=== PATIENT | male | born 1950 | race Caucasian/White ===

== ENCOUNTER 2017-09-30 09:36 | Emergency (ER) | payer MEDICARE ==
--- NOTE | 2017-09-30 10:09 | UC ---
Respiratory Complaint HPI - HPI Summary HPI Summary: 67 yo WM former smoker p/w cough with pleuritic CP x 1 week associated with chills, denies n/v/d - History of Current Complaint Stated Complaint: COUGH Time Seen by Provider: 09/30/17 09:48 Hx Obtained From: Patient, Family/Research Analyst Onset/Duration: Lasting Days Severity Initially: Moderate Severity Currently: Moderate Character: Cough: Productive Aggravating Factors: Nothing Associated Signs And Symptoms: Positive: Chills - Allergies/Home Medications Allergies/Adverse Reactions: Allergies Allergy/AdvReac Type Severity Reaction Status Date / Time ibuprofen Allergy Diarrhea Verified 08/30/17 10:18 liraglutide Allergy Vomiting Verified 08/30/17 10:18 metformin Allergy Diarrhea Verified 08/30/17 10:18 MS Monascus Purpureus Went Allergy Unknown Verified 08/30/17 10:18 Yeast Reaction [[place]ascus Purpureus Went Details Yeast] phenol Allergy Vomiting Verified 08/30/17 10:18 Amqgkyc-Lpi-Bvg Reductase Allergy Muscle Ache Verified 08/30/17 10:18 Inhibitor PMH/Surg Hx/FS Hx/Imm Hx - Additional Past Medical History Additional PMH: former smoker Previously Healthy: Yes Respiratory History: Bronchitis - Surgical History Surgical History: Yes Surgery Procedure, Year, and Place: Rt.wrist surgery-1986. MAR 2015 - RIBS PLATED - TITANIUM - Rt SIDE. Lt shoulder rotator cuff-CMC. CATARACTS W/LENS - DR DOHERTY - ISIDRA LENS IMPLANTS - MRI SAFE TO 3T - Social History Alcohol Use: None Alcohol Amount: 1-2 beers Substance Use Type: None Smoking Status (MU): Former Smoker Type: Cigarettes Have You Smoked in the Last Year: No When Did the Patient Quit Smoking/Using Tobacco: 13 + YEARS AGO - Immunization History Most Recent Influenza Vaccination: 04/19/2015 Most Recent Tetanus Shot: unknown Most Recent Pneumonia Vaccination: 04/2014 Review of Systems Constitutional: Chills Skin: Negative Eyes: Negative ENT: Negative Respiratory: Cough Cardiovascular: Negative Gastrointestinal: Negative Genitourinary: Negative Motor: Negative Neurovascular: Negative Musculoskeletal: Negative Neurological: Negative Psychological: Negative All Other Systems Reviewed And Are Negative: Yes Physical Exam Triage Information Reviewed: Yes Appearance: No Pain Distress Eye Exam: Normal ENT Exam: Normal Dental Exam: Normal Neck exam: Normal Neck: Positive: 1 Respiratory Exam: Normal Respiratory: Positive: Rhonchi - with cough Cardiovascular Exam: Normal Abdominal Exam: Normal Musculoskeletal Exam: Normal Neurological Exam: Normal Psychological Exam: Normal Skin Exam: Normal Respiratory Course/Dx - Differential Dx/Diagnosis Provider Diagnoses: acute bronchitis Discharge - Discharge Plan Condition: Stable Disposition: HOME Prescriptions: Azithromycin TAB* [Zithromax TAB (Z-ROSA) 250 mg #6 tabs] 2 tab PO .TODAY, THEN 1 DAILY #1 rosa Guaifenesin/Dextromethorphan [Mucinex Dm ER 600-30 mg Tablet] 1 each PO BID 10 Days #20 tab.er.12h Patient Education Materials: Acute Bronchitis (ED) Referrals: Carlyle Briggs MD [Primary Care Provider] - Additional Instructions: take medications as directed
[2017-09-30 10:24] VITALS: BP 111/65
== END 2017-09-30 10:37 | disposition home or self-care (01) ==
LOC: UCEAST 09:36
DX: J20.9 Acute bronchitis, unspecified (principal); Z88.6 Allergy status to analgesic agent; Z88.8 Allergy status to other drugs, medicaments and biological substances; Z87.891 Personal history of nicotine dependence
CPT/HCPCS: 99212; G0463

== ENCOUNTER 2019-05-26 14:37 | Emergency (ER) | payer MEDICARE ==
--- OUTSIDE RECORDS SUMMARY | 2019-05-26 15:34 | XMS REPORT | Continuity of Care Document ---
:1950 External Reference #:[id number] Author Name rBandi Whaley O.D. (transmitted by agent of provider Juan Manuel Mancini) Address [address] [place] [address] Care Team Providers Name Role Phone Carlyle Briggs M.D. - Internal Care Team Information [place] [phone] Medicine Manan Hodge MD - Cardiovascular Care Team Information [place] [phone] Disease Problems Active Problems Provider Date Pure hypercholesterolemia Onset: 10/13/2014 Giant cell arteritis Kwame García M.D. Onset: 02/03/2015 Type 2 diabetes mellitus Kwame García M.D. Onset: 03/01/2015 Blepharitis Brandi Whaley O.D. Onset: 04/29/2015 Tachycardia Onset: Presbyopia Brandi Whaley O.D. Onset: 05/21/2019 Regular astigmatism Brandi Whaley O.D. Onset: 05/21/2019 Myopia Brandi Whaley O.D. Onset: 05/21/2019 Vitreous degeneration Brandi Whaley O.D. Onset: 05/21/2019 Presence of intraocular lens Kwame García M.D. Onset: 10/07/2015 Combined form of senile cataract Kwame García M.D. Onset: 09/21/2015 Social History Type Date Description Comments Sex Unknown ETOH Use Consumes 1-2 beers per day Tobacco Use Start: Unknown End: Unknown Patient is a former smoker Recreational Drug Use Denies Drug Use Smoking Status Reviewed: 05/21/19 Patient is a former smoker Allergies, Adverse Reactions, Alerts Active Allergies Reaction Severity Comments Date Metformin 10/13/2014 Victoza 10/13/2014 Misoprostol 04/29/2015 Ibuprofen Nausea and Vomiting 10/01/2015 Red Yeast Rice 05/21/2019 Medications Active Medications SIG Qnty Indications Ordering Provider Date Crestor TK 1 T PO qd Unknown 5mg Tablets Montelukast Sodium Unknown 10mg Tablets Digoxin Unknown 250mcg Tablets Metoprolol Succinate Unknown ER 25mg Tablets ER 24HR Tamsulosin HCL Unknown 0.4mg Capsules Aspirin Unknown 81mg Tablets Tylenol 1 tab four times a Unknown 325mg Tablets day as needed Imodium A-D Unknown 2mg Tablets Oxycodone-Acetaminophe Unknown n 10-325mg Tablets Duloxetine HCL Take 1 Capsule By Unknown 30mg Caps Mouth Every Day DR Barakat Rosuvastatin Calcium Take 1 Tablet By Unknown 5mg Mouth On Sunday, Tablets Sunday And Sunday Immunizations Description No Information Available Vital Signs Description No Information Available Results Description No Information Available Procedures Date Code Description Status 05/21/2019 27750 Determination Of Refractive State Completed 05/21/2019 54683 New Patient Comprehensive Exam Completed Medical Devices Description No Information Available Encounters Description No Information Available Assessments Date Code Description Provider 05/21/2019 H43.813 Vitreous degeneration, bilateral Brandi Whaley O.D. 05/21/2019 Z96.1 Presence of intraocular lens Brandi Whaley O.D. 05/21/2019 H52.13 Myopia, bilateral Brandi Whaley O.D. 05/21/2019 H52.223 Regular astigmatism, bilateral Brandi Whaley O.D. 05/21/2019 H52.4 Presbyopia Brandi Whaley O.D. Plan of Treatment 05/21/2019 - Brandi Whaley O.D.H43.813 Vitreous degeneration, bilateralComments:Smoking can increase the risk of developing or worsening any eye related disease, as well as affect your overall health. If you are a smoker , we strongly recommend that you quit.If you are not a smoker, we strongly recommend that you do not start. You have Vitreous Floaters. If you have any changed in your floaters or flashing lights, please contact this office.Follow up:2 YEARS You can expect to have your eyes dilated at your next visit. If Dr. Whaley orders any additional testing, it may require extra time. We recommend that you bring sunglasses, as dilation drops often make you light sensitive until they wear off. We always recommend you bring someone to drive youhome if you are uncomfortable driving with your eyes dilated. If you have any questions before your next visit, feel free to call our office at .Z96.1 Presence of intraocular lensComments:The artificial lens implants in both eyes appear to be stable at this time.H52.13 Myopia, bilateralComments:You have Myopia, or near sightedness. I have given you a prescription for glasses.H52.223 Regular astigmatism, bilateralComments:Astigmatism is a common vision condition that happens when a person's cornea is not symmetrical. Dr. Whaley has given you a prescription to correct for this.H52.4 PresbyopiaComments :Smoking can increase the risk of developing or worsening any eye related disease, as well as affect your overall health. If you are a smoker, we strongly recommend that you quit.If you are not a smoker, we strongly recommend that you do not start. You have presbyopia. This is when the lens in your eye loses the ability to change focus, and happens as we age. A pair of reading glasses will help you see up close. Functional Status Description No Information Available Mental Status Description No Information Available Referrals Description No Information Available
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
[2019-05-26 21:41] VITALS: BP 129/74
== END 2019-05-26 21:39 | disposition home or self-care (01) ==
LOC: ED 14:37
DX: M54.5 Low back pain (principal); G89.29 Other chronic pain; E11.9 Type 2 diabetes mellitus without complications; E78.00 Pure hypercholesterolemia, unspecified; J44.9 Chronic obstructive pulmonary disease, unspecified; Z87.891 Personal history of nicotine dependence; Z79.899 Other long term (current) drug therapy; Z88.6 Allergy status to analgesic agent; Z88.8 Allergy status to other drugs, medicaments and biological substances
CPT/HCPCS: 72148; 99283

== ENCOUNTER 2020-02-09 21:51 | Inpatient (IN) ==
[2020-02-09] MEDS ORDERED: NS 0.9% 1000 ml BAG 1,000 ML IV ONE (22:10)
[2020-02-09 22:39] LABS: ABS Lymphocytes 0.2 10^3/ul (1.0-4.8); ABS Monocytes 0.5 10^3/ul (0-0.8); Eosinophil % 0.1 %; Hematocrit 39 % (42-52); Hemoglobin 13.7 g/dL (14.0-18.0); Lymphocyte % 2.6 %; Mean Corpuscular HGB Conc 35 g/dL (31-36); Mean Corpuscular Hemoglobin 31 pg (27-31); Mean Corpuscular Volume 87 fL (80-94); Mean Platelet Volume 7.5 fL (7.4-10.4); Nucleated Red Blood Cells % 0.1; Platelet Count 208 10^3/uL (150-450); Red Blood Count 4.47 10^6 /uL (4.18-5.48); Red Cell Distribution Width 13 % (10-15); White Blood Count 8.1 10^3/uL (3.5-10.8)
[2020-02-09 22:42] LABS: Urine Appearance Clear; Urine Bilirubin Negative (Negative); Urine Blood 1+ (Negative); Urine Color Amber; Urine Glucose 1+(50 mg/dL) (Negative); Urine Ketones Negative (Negative); Urine Nitrite Negative (Negative); Urine Protein 2+(100 mg/dL) (Negative); Urine Specific Gravity 1.027 (1.010-1.030); Urine Urobilinogen Negative (Negative)
[2020-02-09 22:43] LABS: Urine Bacteria Absent (Absent); Urine Red Blood Cell 1+(3-5/hpf) (Absent); Urine Squamous Epithelial Cell Present (Absent); Urine White Blood Cell Trace(0-5/hpf) (Absent)
[2020-02-09 22:54] LABS: ALT 15 U/L (7-52); AST 32 U/L (13-39); Albumin 3.9 g/dL (3.2-5.2); Albumin/Globulin Ratio 1.1 (1-3); Alkaline Phosphatase 52 U/L (34-104); Anion Gap 9 mmol/L (2-11); Blood Urea Nitrogen 36 mg/dL (6-24); C Reactive Protein 340.94 mg/L (<8.01); CO2 Carbon Dioxide 24 mmol/L (22-32); Calcium 9.3 mg/dL (8.6-10.3); Chloride 102 mmol/L (101-111); EGFR African American 72.4 (>60); EGFR Non-African American 59.9 (>60); Globulin 3.6 g/dL (2-4); Glucose 198 mg/dL (70-100); Magnesium 2.1 mg/dL (1.9-2.7); Potassium 4.1 mmol/L (3.5-5.0); Sodium 135 mmol/L (135-145); Total Protein 7.5 g/dL (6.4-8.9)
[2020-02-09 22:58] LABS: Troponin I 0.04 ng/mL (<0.03)
[2020-02-10] MEDS ORDERED: NS 0.9% 1000 ml BAG 1,000 ML IV ONE (00:20)
[2020-02-10 01:46] LABS: Creatine Kinase 965 U/L (10-223)
[2020-02-10 02:05] LABS: Troponin I 0.04 ng/mL (<0.03)
[2020-02-10] MEDS ORDERED: cefTRIAXone 1 gm/50 mL NS BAG 1 GM/50 ML BAG IV ONE (02:12)
[2020-02-10] MEDS ORDERED: Azithromycin 500 mg/250 ml NS 500 MG/250 ML BAG IVPB ONE (02:12)
[2020-02-10] MEDS ORDERED: Iodixanol (CONTRAST) 320 MG/ML 100 ML SDV IV ONE (03:26)
[2020-02-10] MEDS ORDERED: methylPREDNISolone 125 mg 2 ML VIAL IV ONE (03:37)
[2020-02-10] MEDS ORDERED: Albuterol/Ipratropium NEB.SOL (2.5/0.5 MG) 3 ML NEB.SOLN INH PRN (03:41)
[2020-02-10] MEDS ORDERED: NS 0.9% 1000 ml BAG 1,000 ML IV SCH (03:45)
[2020-02-10] MEDS ORDERED: Enoxaparin 40 MG/0.4 ML SYR SUBCUT SCH (04:00)
[2020-02-10 07:19] LABS: Digoxin 0.9 ng/ml (0.8-2.0)
[2020-02-10 07:26] LABS: Creatine Kinase 838 U/L (10-223)
[2020-02-10 08:46] LABS: Troponin I 0.04 ng/mL (<0.03)
[2020-02-10 10:19] LABS: ABS Lymphocytes 0.5 10^3/ul (1.0-4.8); ABS Monocytes 0.4 10^3/ul (0-0.8); Eosinophil % 0.1 %; Hematocrit 37 % (42-52); Hemoglobin 12.7 g/dL (14.0-18.0); Lymphocyte % 7.3 %; Mean Corpuscular HGB Conc 35 g/dL (31-36); Mean Corpuscular Hemoglobin 31 pg (27-31); Mean Corpuscular Volume 89 fL (80-94); Mean Platelet Volume 7.4 fL (7.4-10.4); Nucleated Red Blood Cells % 0.1; Platelet Count 195 10^3/uL (150-450); Red Blood Count 4.13 10^6 /uL (4.18-5.48); Red Cell Distribution Width 13 % (10-15); White Blood Count 7.1 10^3/uL (3.5-10.8)
[2020-02-10 10:38] LABS: BUN/Creatinine Ratio 25.3 (8-20); Calcium 8.2 mg/dL (8.6-10.3); EGFR Non-African American 86.8 (>60); Potassium 4.1 mmol/L (3.5-5.0)
[2020-02-10] MEDS ORDERED: oxyCODONE/Acetamin 5/325 mg TAB PO PRN (13:40)
[2020-02-10] MEDS: Enoxaparin 40 MG/0.4 ML SYR SUBCUT SCH (15:03)
[2020-02-10] MEDS ORDERED: Dextrose 50% Syringe 50 ml 25 GM/50 ML SYRINGE IV PUSH PRN (17:05)
[2020-02-10] MEDS: NS 0.9% 1000 ml BAG 1,000 ML IV SCH (21:30)
[2020-02-11] MEDS: cefTRIAXone 1 gm/50 mL NS BAG 1 GM/50 ML BAG IVPB SCH ×2 (00:08→23:49)
[2020-02-11 07:00] LABS: ABS Lymphocytes 0.7 10^3/ul (1.0-4.8); ABS Monocytes 0.4 10^3/ul (0-0.8); Hematocrit 33 % (42-52); Hemoglobin 11.6 g/dL (14.0-18.0); Lymphocyte % 12.1 %; Mean Corpuscular HGB Conc 35 g/dL (31-36); Mean Corpuscular Hemoglobin 31 pg (27-31); Mean Corpuscular Volume 88 fL (80-94); Mean Platelet Volume 7.5 fL (7.4-10.4); Platelet Count 191 10^3/uL (150-450); Red Blood Count 3.75 10^6 /uL (4.18-5.48); Red Cell Distribution Width 14 % (10-15); White Blood Count 5.9 10^3/uL (3.5-10.8)
[2020-02-11 07:31] LABS: Anion Gap 6 mmol/L (2-11); BUN/Creatinine Ratio 26.4 (8-20); Blood Urea Nitrogen 24 mg/dL (6-24); C Reactive Protein 166.86 mg/L (<8.01); CO2 Carbon Dioxide 25 mmol/L (22-32); Calcium 7.9 mg/dL (8.6-10.3); Chloride 110 mmol/L (101-111); Creatine Kinase 401 U/L (10-223); EGFR African American 99.7 (>60); EGFR Non-African American 82.4 (>60); Glucose 224 mg/dL (70-100); Potassium 4.3 mmol/L (3.5-5.0); Sodium 141 mmol/L (135-145)
[2020-02-11 07:44] LABS: Digoxin 0.7 ng/ml (0.8-2.0)
[2020-02-11] MEDS: DULoxetine DR 30 mg CAP PO SCH (08:41)
[2020-02-11 09:22] LABS: % Iron Saturation 30 % (15-55); Iron 53 ug/dL (50-212); Total Iron Binding Capacity 178 mcg/dL (250-450); Transferrin 127 mg/dL (203-362)
[2020-02-11 09:42] LABS: Ferritin 294.7 ng/mL (24-336)
[2020-02-11] MEDS: NS 0.9% 1000 ml BAG 1,000 ML IV SCH (12:39)
[2020-02-11] MEDS: Enoxaparin 40 MG/0.4 ML SYR SUBCUT SCH (17:23)
[2020-02-12 05:36] LABS: ABS Lymphocytes 1.5 10^3/ul (1.0-4.8); ABS Monocytes 0.5 10^3/ul (0-0.8); Hematocrit 31 % (42-52); Hemoglobin 11.1 g/dL (14.0-18.0); Mean Corpuscular HGB Conc 36 g/dL (31-36); Mean Corpuscular Hemoglobin 31 pg (27-31); Mean Corpuscular Volume 88 fL (80-94); Mean Platelet Volume 7.4 fL (7.4-10.4); Platelet Count 177 10^3/uL (150-450); Red Blood Count 3.56 10^6 /uL (4.18-5.48); Red Cell Distribution Width 13 % (10-15)
[2020-02-12] MEDS: NS 0.9% 1000 ml BAG 1,000 ML IV SCH (05:44)
[2020-02-12 05:54] LABS: BUN/Creatinine Ratio 28.4 (8-20); EGFR Non-African American 94.2 (>60)
[2020-02-12] MEDS: DULoxetine DR 30 mg CAP PO SCH (08:16)
[2020-02-12] MEDS ORDERED: Aspirin EC 81 mg TAB.EC (enteric coated) PO SCH (09:00)
[2020-02-12 12:08] VITALS: BP 136/63
[2020-02-12 18:01] LABS: C Reactive Protein 72.98 mg/L (<8.01)
== END 2020-02-12 14:25 | disposition home or self-care (01) | DRG 194 ==
LOC: ED 21:51 → MED 02-10 13:15
PROVIDERS: ADMIT Internal Medicine; ATTEND Internal Medicine

== ENCOUNTER 2023-04-10 14:23 | Inpatient (IN) ==
[2023-04-10 15:31] LABS: Albumin 4.1 g/dL (3.2-5.2); Calcium 9.5 mg/dL (8.6-10.3); Potassium 4.4 mmol/L (3.5-5.0); Total Bilirubin 0.7 mg/dL (0.2-1.0)
[2023-04-10 15:37] LABS: Albumin/Globulin Ratio 1.3 (1-3); C Reactive Protein 38.58 mg/L (<8.01); Creatinine, Serum 1.2 mg/dL (0.67-1.17); Globulin 3.2 g/dL (2-4); Total Protein 7.3 g/dL (6.4-8.9); eGFR CKD-EPI 63.9 (>60)
[2023-04-10 15:39] LABS: ABS Lymphocytes 0.9 10^3/uL (1.0-4.8); ABS Monocytes 0.8 10^3/uL (0.0-1.1); ABS Neutrophils 3.4 10^3/uL (1.5-7.6); ABS Nucleated RBC 0.02 10^3/ul; Eosinophil % 0.2 %; Hematocrit 47.9 % (38-53); Hemoglobin 16.4 g/dL (13.2-16.3); Lymphocyte % 17.3 %; Mean Corpuscular Hemoglobin 30.2 pg (27-33); Mean Corpuscular Hgb Conc 34.2 g/dL (31-36); Mean Corpuscular Volume 88.4 fL (80-97); Mean Platelet Volume 7.4 fL (7.5-11.2); Nucleated Red Blood Cells % 0.4 /100 WBC (0.0-0.4); Platelet Count 148 10^3/uL (150-450); Red Blood Count 5.42 10^6/uL (4.06-5.63); Red Cell Distribution Width 14.3 % (12-17); White Blood Count 5.2 10^3/uL (3.6-10.2)
[2023-04-10 15:53] LABS: INR 0.99 (0.83-1.13)
[2023-04-10 15:54] LABS: Activated Partial Thrombo Time 29.4 seconds (26.0-38.0)
[2023-04-10] MEDS ORDERED: NS 0.9% 1000 ml BAG 1,000 ML IV ONE (16:18)
[2023-04-10 16:51] LABS: Venous Bicarbonate HCO3 24.1 mmol/L (24-28)
[2023-04-10] MEDS ORDERED: Iohexol 300 (CONTRAST) 10 ML SDV IV ONE (16:51)
[2023-04-10 17:17] LABS: High Sensitivity Troponin 1 Hr 6 pg/mL (<20)
[2023-04-10 18:07] LABS: Urine Appearance Clear; Urine Bilirubin Negative (Negative); Urine Blood Negative (Negative); Urine Color Yellow; Urine Glucose 3+(>=500 mg/dL) (Negative); Urine Ketones Negative (Negative); Urine Nitrite Negative (Negative); Urine Protein Negative (Negative); Urine Specific Gravity 1.039 (1.002-1.030); Urine Urobilinogen Negative (Negative)
[2023-04-10 20:56] LABS: Hemoglobin 15.3 g/dL (13.2-16.3); Mean Corpuscular Hemoglobin 30.3 pg (27-33); Mean Corpuscular Hgb Conc 34.1 g/dL (31-36); Mean Corpuscular Volume 88.8 fL (80-97); Platelet Count 127 10^3/uL (150-450); Red Blood Count 5.07 10^6/uL (4.06-5.63); Red Cell Distribution Width 14.4 % (12-17); White Blood Count 4.4 10^3/uL (3.6-10.2)
[2023-04-10 21:14] LABS: ABS Monocytes 0.8 10^3/uL (0.0-1.1); ABS Neutrophils 2.5 10^3/uL (1.5-7.6); ABS Nucleated RBC 0.01 10^3/ul; Eosinophil % 0.7 %; Lymphocyte % 22.2 %; Nucleated Red Blood Cells % 0.2 /100 WBC (0.0-0.4)
[2023-04-10] MEDS: Enoxaparin 40 MG/0.4 ML SYR SUBCUT SCH (21:30)
[2023-04-11] MEDS ORDERED: Dextrose 50% Syringe 50 ml 25 GM/50 ML SYRINGE IV PUSH PRN (00:02)
[2023-04-11] MEDS ORDERED: Remdesivir 100 mg Vial 200 MG in NS 0.9% 250 ml 210 ML IV ONE (00:20)
[2023-04-11] MEDS: Azithromycin 500 mg/250 ml NS 500 MG/250 ML BAG IVPB SCH (05:31)
[2023-04-11 06:27] LABS: Albumin 3.7 g/dL (3.2-5.2); Albumin/Globulin Ratio 1.3 (1-3); Calcium 8.5 mg/dL (8.6-10.3); Creatinine, Serum 0.99 mg/dL (0.67-1.17); Globulin 2.8 g/dL (2-4); Potassium 4.4 mmol/L (3.5-5.0); Total Bilirubin 0.7 mg/dL (0.2-1.0); Total Protein 6.5 g/dL (6.4-8.9); eGFR CKD-EPI 80.4 (>60)
[2023-04-11 06:28] LABS: Calcium 8.5 mg/dL (8.6-10.3); Creatinine, Serum 0.97 mg/dL (0.67-1.17); INR 1.14 (0.83-1.13); Potassium 4.3 mmol/L (3.5-5.0); eGFR CKD-EPI 82.4 (>60)
[2023-04-11] MEDS: SPIRIVA Respimat (tiotropium) 2.5 mcg/inh Inhaler INH SCH (07:51)
[2023-04-11 08:29] LABS: Magnesium 1.7 mg/dL (1.9-2.7)
[2023-04-11] MEDS: Calcium Citrate 200 mg TAB PO SCH (08:41)
[2023-04-11] MEDS: DULoxetine DR 60 mg CAP PO SCH (08:42)
[2023-04-11] MEDS: CMCS: OMEGA-3 FATTY ACID 1000 mg(NF) PO SCH (08:43)
[2023-04-11] MEDS ORDERED: NON FORMULARY MED (Tiotropium Bromide [Spiriva With Handihaler] 18 mcg capsule, w/inhalati INH SCH (09:00)
[2023-04-11] MEDS ORDERED: COENZYME Q10 50 MG PO SCH (09:00)
[2023-04-11] MEDS ORDERED: Magnesium Sulfate IV 3 GM in NS 0.9% 100 ml BAG 100 ML IVPB ONE (09:44)
[2023-04-11] MEDS: Enoxaparin 40 MG/0.4 ML SYR SUBCUT SCH (20:31)
[2023-04-12] MEDS: Azithromycin 500 mg/250 ml NS 500 MG/250 ML BAG IVPB SCH (01:35)
[2023-04-12 07:10] LABS: ABS Basophils 0.1 10^3/uL (0.0-0.1); ABS Lymphocytes 0.7 10^3/uL (1.0-4.8); ABS Monocytes 0.5 10^3/uL (0.0-1.1); ABS Neutrophils 2.9 10^3/uL (1.5-7.6); ABS Nucleated RBC 0.01 10^3/ul; Eosinophil % 0.2 %; Hematocrit 43.4 % (38-53); Hemoglobin 14.9 g/dL (13.2-16.3); Lymphocyte % 16.2 %; Mean Corpuscular Hemoglobin 30.4 pg (27-33); Mean Corpuscular Hgb Conc 34.5 g/dL (31-36); Mean Corpuscular Volume 88.3 fL (80-97); Mean Platelet Volume 7.2 fL (7.5-11.2); Nucleated Red Blood Cells % 0.3 /100 WBC (0.0-0.4); Platelet Count 137 10^3/uL (150-450); Red Blood Count 4.91 10^6/uL (4.06-5.63); Red Cell Distribution Width 14.1 % (12-17); White Blood Count 4.1 10^3/uL (3.6-10.2)
[2023-04-12 07:15] LABS: INR 1.15 (0.83-1.13)
[2023-04-12] MEDS: SPIRIVA Respimat (tiotropium) 2.5 mcg/inh Inhaler INH SCH (07:44)
[2023-04-12 07:45] LABS: Calcium 8.7 mg/dL (8.6-10.3); Creatinine, Serum 0.8 mg/dL (0.67-1.17); Potassium 4.5 mmol/L (3.5-5.0); eGFR CKD-EPI 93.4 (>60)
[2023-04-12] MEDS: DULoxetine DR 60 mg CAP PO SCH (10:34)
[2023-04-12] MEDS: CMCS: OMEGA-3 FATTY ACID 1000 mg(NF) PO SCH (10:34)
[2023-04-12] MEDS: COENZYME Q10 50 MG PO SCH (10:35)
[2023-04-12] MEDS: Remdesivir 100 mg Vial 100 MG in NS 0.9% 250 ml 230 ML IV SCH (11:11)
[2023-04-12] MEDS: Calcium Citrate 200 mg TAB PO SCH (11:12)
[2023-04-12] MEDS ORDERED: cefTRIAXone 1 gm/50 mL D5W 1 GM/50 ML BAG IV SCH (17:30)
[2023-04-12] MEDS: Enoxaparin 40 MG/0.4 ML SYR SUBCUT SCH (21:29)
[2023-04-13 09:00] LABS: INR 1.11 (0.83-1.13)
[2023-04-13 09:03] LABS: ABS Lymphocytes 0.9 10^3/uL (1.0-4.8); ABS Monocytes 0.6 10^3/uL (0.0-1.1); ABS Neutrophils 3.3 10^3/uL (1.5-7.6); ABS Nucleated RBC 0.02 10^3/ul; Hematocrit 46.5 % (38-53); Hemoglobin 16.1 g/dL (13.2-16.3); Lymphocyte % 18.4 %; Mean Corpuscular Hemoglobin 30.1 pg (27-33); Mean Corpuscular Hgb Conc 34.5 g/dL (31-36); Mean Corpuscular Volume 87.3 fL (80-97); Mean Platelet Volume 7.4 fL (7.5-11.2); Nucleated Red Blood Cells % 0.4 /100 WBC (0.0-0.4); Platelet Count 149 10^3/uL (150-450); Red Blood Count 5.33 10^6/uL (4.06-5.63); Red Cell Distribution Width 14.1 % (12-17); White Blood Count 4.8 10^3/uL (3.6-10.2)
[2023-04-13 09:09] LABS: Creatinine, Serum 0.95 mg/dL (0.67-1.17); Magnesium 1.8 mg/dL (1.9-2.7); Potassium 4.9 mmol/L (3.5-5.0); eGFR CKD-EPI 84.5 (>60)
[2023-04-13] MEDS: Remdesivir 100 mg Vial 100 MG in NS 0.9% 250 ml 230 ML IV SCH (09:33)
[2023-04-13] MEDS: COENZYME Q10 50 MG PO SCH (09:37)
[2023-04-13] MEDS: CMCS: OMEGA-3 FATTY ACID 1000 mg(NF) PO SCH (09:37)
[2023-04-13] MEDS: SPIRIVA Respimat (tiotropium) 2.5 mcg/inh Inhaler INH SCH (09:38)
[2023-04-13] MEDS: Calcium Citrate 200 mg TAB PO SCH (09:38)
[2023-04-13] MEDS: DULoxetine DR 60 mg CAP PO SCH (09:38)
[2023-04-13 15:31] VITALS: BP 108/60
== END 2023-04-13 16:50 | disposition home or self-care (01) | DRG 177 ==
LOC: ED 14:23 → SUATTDRO 19:32 → EDHOLD 19:32 → MEDTELE 04-11 15:33
PROVIDERS: ADMIT Internal Medicine; ATTEND Internal Medicine

== ENCOUNTER 2023-11-27 18:17 | Observation (INO) ==
[2023-11-28 00:11] LABS: ABS Basophils 0.1 10^3/uL (0.0-0.1); ABS Eosinophils 0.1 10^3/uL (0.0-0.5); ABS Monocytes 0.7 10^3/uL (0.0-1.1); ABS Nucleated RBC 0.01 10^3/ul; Eosinophil % 1.5 %; Hemoglobin 15.7 g/dL (13.2-16.3); Lymphocyte % 28.7 %; Mean Corpuscular Hgb Conc 33.4 g/dL (31-36); Mean Corpuscular Volume 89.7 fL (80-97); Nucleated Red Blood Cells % 0.2 %/100WBC (0.0-0.8); Platelet Count 217 10^3/uL (150-450); Red Blood Count 5.24 10^6/uL (4.06-5.63); Red Cell Distribution Width 14.6 % (12-17); White Blood Count 6.9 10^3/uL (3.6-10.2)
[2023-11-28 01:04] LABS: Albumin 4.1 g/dL (3.2-5.2); Albumin/Globulin Ratio 1.5 (1-3); Calcium 9.3 mg/dL (8.6-10.3); Creatinine, Serum 0.86 mg/dL (0.67-1.17); Globulin 2.8 g/dL (2-4); Magnesium 2.2 mg/dL (1.9-2.7); Potassium 4.7 mmol/L (3.5-5.0); Total Bilirubin 0.8 mg/dL (0.2-1.0); Total Protein 6.9 g/dL (6.4-8.9); eGFR CKD-EPI 90.9 (>60)
[2023-11-28 01:05] LABS: TSH Ultra Thyroid Stim Horm 2.57 mcIU/mL (0.34-5.60)
[2023-11-28 02:07] LABS: High Sensitivity Troponin 1 Hr 3 pg/mL (<20)
[2023-11-28 08:51] LABS: Hematocrit 47.2 % (38-53); Hemoglobin 15.7 g/dL (13.2-16.3); Mean Corpuscular Hemoglobin 29.9 pg (27-33); Mean Corpuscular Hgb Conc 33.3 g/dL (31-36); Mean Corpuscular Volume 89.8 fL (80-97); Platelet Count 206 10^3/uL (150-450); Red Blood Count 5.26 10^6/uL (4.06-5.63); Red Cell Distribution Width 14.4 % (12-17); White Blood Count 6.9 10^3/uL (3.6-10.2)
[2023-11-28] MEDS ORDERED: Dextrose 50% Syringe 50 ml 25 GM/50 ML SYRINGE IV PUSH PRN (08:56)
[2023-11-28] MEDS ORDERED: Insulin GLARGINE 100 un/ml 10 ml VIAL SUBCUT SCH ×2 (09:00)
[2023-11-28 09:09] LABS: Anion Gap 7 mmol/L (2-16); Blood Urea Nitrogen 15 mg/dL (6-24); CO2 Carbon Dioxide 30 mmol/L (22-32); Calcium 9.3 mg/dL (8.6-10.3); Chloride 102 mmol/L (101-111); Creatinine, Serum 0.83 mg/dL (0.67-1.17); Glucose 106 mg/dL (70-100); Potassium 4.8 mmol/L (3.5-5.0); Sodium 139 mmol/L (135-145); eGFR CKD-EPI 91.8 (>60)
[2023-11-28] MEDS: Empagliflozin 25 MG TAB PO SCH (09:16)
[2023-11-28] MEDS: DULoxetine DR 60 mg CAP PO SCH ×2 (09:17→20:36)
[2023-11-28] MEDS: SPIRIVA Respimat (tiotropium) 2.5 mcg/inh Inhaler INH SCH (09:17)
[2023-11-28] MEDS: Aspirin EC 81 mg TAB.EC (enteric coated) PO SCH (09:17)
[2023-11-28] MEDS: Mupirocin 2% OINT TUBE TOPICAL SCH (09:19)
[2023-11-28 10:43] LABS: Folate > 20.00 ng/mL (5.90-24.80)
[2023-11-28 10:44] LABS: Vitamin B12 441 pg/mL (180-914)
[2023-11-28 12:20] LABS: Urine Appearance Clear; Urine Bilirubin Negative (Negative); Urine Blood Negative (Negative); Urine Color Light-Yellow; Urine Glucose 4+ (>=1000 mg/dL) (Negative); Urine Ketones Negative (Negative); Urine Nitrite Negative (Negative); Urine Protein Negative (Negative); Urine Urobilinogen Negative (Negative)
[2023-11-28 12:21] LABS: INR 1.01 (0.83-1.13)
[2023-11-28 12:22] LABS: Activated Partial Thrombo Time 31.5 seconds (26.0-38.0)
[2023-11-28] MEDS ORDERED: Sulfur Hexaflouride MICROSPHR 25 MG VIAL ONE (12:32)
[2023-11-28 16:49] LABS: Creatinine, Serum 0.75 mg/dL (0.67-1.17); eGFR CKD-EPI 94.7 (>60)
[2023-11-28] MEDS: Heparin 5000 UNITS/ML 1 mL VIAL SUBCUT SCH (20:37)
[2023-11-29 06:30] LABS: ABS Basophils 0.1 10^3/uL (0.0-0.1); ABS Eosinophils 0.1 10^3/uL (0.0-0.5); ABS Lymphocytes 1.7 10^3/uL (1.0-4.8); ABS Monocytes 0.7 10^3/uL (0.0-1.1); ABS Neutrophils 3.8 10^3/uL (1.5-7.6); ABS Nucleated RBC 0.02 10^3/ul; Eosinophil % 1.1 %; Hematocrit 44.7 % (38-53); Hemoglobin 15.1 g/dL (13.2-16.3); Mean Corpuscular Hemoglobin 29.8 pg (27-33); Mean Corpuscular Hgb Conc 33.7 g/dL (31-36); Mean Corpuscular Volume 88.4 fL (80-97); Mean Platelet Volume 7.3 fL (7.5-11.2); Nucleated Red Blood Cells % 0.3 %/100WBC (0.0-0.8); Platelet Count 186 10^3/uL (150-450); Red Blood Count 5.06 10^6/uL (4.06-5.63); Red Cell Distribution Width 14.2 % (12-17); White Blood Count 6.3 10^3/uL (3.6-10.2)
[2023-11-29 06:49] LABS: Creatinine, Serum 0.77 mg/dL (0.67-1.17); Potassium 4.4 mmol/L (3.5-5.0); eGFR CKD-EPI 93.9 (>60)
[2023-11-29] MEDS: Insulin GLARGINE 100 un/ml 10 ml VIAL SUBCUT SCH (09:07)
[2023-11-29 14:36] VITALS: BP 116/79
== END 2023-11-29 15:50 | disposition home or self-care (01) ==
LOC: ED 18:17 → EDHOLD 18:17 → SUATTDRO 11-28 03:30 → MED 11-28 12:15
PROVIDERS: ADMIT Internal Medicine; ATTEND Internal Medicine

== ENCOUNTER 2024-01-28 15:47 | Inpatient (IN) ==
[2024-01-28 16:51] LABS: ABS Basophils 0.1 10^3/uL (0.0-0.1); ABS Eosinophils 0.2 10^3/uL (0.0-0.5); ABS Lymphocytes 1.6 10^3/uL (1.0-4.8); ABS Monocytes 0.6 10^3/uL (0.0-1.1); ABS Neutrophils 4.3 10^3/uL (1.5-7.6); ABS Nucleated RBC 0.02 10^3/ul; Eosinophil % 2.4 %; Hematocrit 52.1 % (38-53); Hemoglobin 16.9 g/dL (13.2-16.3); Lymphocyte % 24.1 %; Mean Corpuscular Hemoglobin 29.6 pg (27-33); Mean Corpuscular Hgb Conc 32.4 g/dL (31-36); Mean Corpuscular Volume 91.4 fL (80-97); Mean Platelet Volume 7.5 fL (7.5-11.2); Nucleated Red Blood Cells % 0.2 %/100WBC (0.0-0.8); Platelet Count 179 10^3/uL (150-450); Red Cell Distribution Width 14.7 % (12-17); White Blood Count 6.7 10^3/uL (3.6-10.2)
[2024-01-28 17:45] LABS: Albumin 4.4 g/dL (3.2-5.2); Albumin/Globulin Ratio 1.4 (1-3); Calcium 9.5 mg/dL (8.6-10.3); Creatinine, Serum 1.06 mg/dL (0.67-1.17); Globulin 3.1 g/dL (2-4); Magnesium 2.2 mg/dL (1.9-2.7); Potassium 4.4 mmol/L (3.5-5.0); Total Bilirubin 1.3 mg/dL (0.2-1.0); Total Protein 7.5 g/dL (6.4-8.9); eGFR CKD-EPI 73.6 (>60)
[2024-01-28] MEDS ORDERED: Iohexol 350 (CONTRAST) 500 ML MDV IV ONE (17:56)
[2024-01-28 17:58] LABS: TSH Ultra Thyroid Stim Horm 2.62 mcIU/mL (0.34-5.60)
[2024-01-28 18:16] LABS: High Sensitivity Troponin 1 Hr 6 pg/mL (<20)
[2024-01-28] MEDS: Iodixanol (CONTRAST) 320 MG/ML 100 ML SDV IV ONE (19:11)
[2024-01-28 19:22] LABS: Urine Appearance Clear; Urine Bilirubin Negative (Negative); Urine Blood Negative (Negative); Urine Color Yellow; Urine Glucose 4+ (>=1000 mg/dL) (Negative); Urine Ketones Negative (Negative); Urine Nitrite Negative (Negative); Urine Protein Negative (Negative); Urine Urobilinogen Negative (Negative)
[2024-01-28] MEDS ORDERED: oxyCODONE/Acetamin 5/325 mg TAB PO PRN (22:42)
[2024-01-28] MEDS: Enoxaparin 40 MG/0.4 ML SYR SUBCUT SCH (22:59)
[2024-01-29 06:30] LABS: ABS Basophils 0.1 10^3/uL (0.0-0.1); ABS Eosinophils 0.2 10^3/uL (0.0-0.5); ABS Lymphocytes 1.8 10^3/uL (1.0-4.8); ABS Monocytes 0.7 10^3/uL (0.0-1.1); ABS Neutrophils 5.4 10^3/uL (1.5-7.6); ABS Nucleated RBC 0.01 10^3/ul; Eosinophil % 2.8 %; Hematocrit 43.9 % (38-53); Hemoglobin 14.5 g/dL (13.2-16.3); Lymphocyte % 21.9 %; Mean Corpuscular Hemoglobin 29.8 pg (27-33); Mean Corpuscular Hgb Conc 33.1 g/dL (31-36); Mean Corpuscular Volume 90.2 fL (80-97); Mean Platelet Volume 7.4 fL (7.5-11.2); Nucleated Red Blood Cells % 0.1 %/100WBC (0.0-0.8); Platelet Count 157 10^3/uL (150-450); Red Blood Count 4.87 10^6/uL (4.06-5.63); Red Cell Distribution Width 14.3 % (12-17); White Blood Count 8.2 10^3/uL (3.6-10.2)
[2024-01-29 07:05] LABS: Creatinine, Serum 0.79 mg/dL (0.67-1.17); eGFR CKD-EPI 93.2 (>60)
[2024-01-29] MEDS ORDERED: Insulin GLARGINE 100 un/ml 10 ml VIAL SUBCUT SCH (09:00)
[2024-01-29] MEDS: COENZYME Q10 50 MG PO SCH (09:11)
[2024-01-29] MEDS: DULoxetine DR 60 mg CAP PO SCH (10:17)
[2024-01-29] MEDS: Aspirin EC 81 mg TAB.EC (enteric coated) PO SCH (10:18)
[2024-01-29] MEDS ORDERED: Lidocaine 1% MPF 5 ML VIAL ONE (12:00)
[2024-01-29] MEDS: SPIRIVA Respimat (tiotropium) 2.5 mcg/inh Inhaler INH SCH (12:23)
[2024-01-29] MEDS: Empagliflozin 25 MG TAB PO SCH (13:07)
[2024-01-29] MEDS: oxyCODONE/Acetamin 5/325 mg TAB PO PRN (16:02)
[2024-01-30] MEDS: Insulin GLARGINE 100 un/ml 10 ml VIAL SUBCUT SCH (10:52)
[2024-01-30] MEDS: Iodixanol (CONTRAST) 320 MG/ML 100 ML SDV IV ONE (16:19)
[2024-01-31 06:02] LABS: ABS Basophils 0.1 10^3/uL (0.0-0.1); ABS Eosinophils 0.3 10^3/uL (0.0-0.5); ABS Lymphocytes 1.8 10^3/uL (1.0-4.8); ABS Monocytes 0.7 10^3/uL (0.0-1.1); ABS Nucleated RBC 0.01 10^3/ul; Eosinophil % 3.9 %; Hematocrit 46.7 % (38-53); Hemoglobin 15.4 g/dL (13.2-16.3); Lymphocyte % 26.5 %; Mean Corpuscular Hemoglobin 29.8 pg (27-33); Mean Corpuscular Volume 90.5 fL (80-97); Mean Platelet Volume 7.6 fL (7.5-11.2); Nucleated Red Blood Cells % 0.2 %/100WBC (0.0-0.8); Platelet Count 178 10^3/uL (150-450); Red Blood Count 5.17 10^6/uL (4.06-5.63); Red Cell Distribution Width 14.2 % (12-17); White Blood Count 6.9 10^3/uL (3.6-10.2)
[2024-01-31 06:23] LABS: Creatinine, Serum 0.82 mg/dL (0.67-1.17); Magnesium 2.1 mg/dL (1.9-2.7); Phosphorus 3.4 mg/dL (2.5-5.0); Potassium 4.6 mmol/L (3.5-5.0); eGFR CKD-EPI 92.2 (>60)
[2024-01-31] MEDS: Magnesium Hydroxide LIQ 30 ML UDC PO ONE (13:26)
[2024-01-31] MEDS: Polyethylene Glycol 3350 17 GM PACKET PO ONE (13:27)
[2024-01-31 14:02] VITALS: BP 113/70
== END 2024-01-31 16:51 | disposition home or self-care (01) | DRG 261 ==
LOC: EDHOLD 15:47 → ED 15:47 → SUATTDRO 21:45 → MEDTELE 01-29 11:45
PROVIDERS: ADMIT Internal Medicine; ATTEND Internal Medicine